=== PATIENT | female | born 1930 | race Caucasian/White ===

== ENCOUNTER 2019-12-22 17:36 | Inpatient (IN) ==
[2019-12-22] MEDS ORDERED: LORazepam 2 MG/1 ML VIAL IV STA (17:44)
[2019-12-22] MEDS ORDERED: FOSPHENYTOIN 500 MG.PE/10 ML VIAL ONE (17:45)
[2019-12-22] MEDS ORDERED: FOSPHENYTOIN 1,000 MG.PE in SODIUM CHLORIDE 0.9% 250 ML IV STA (17:46)
[2019-12-22 18:26] LABS: Basophils # 0.1 10*3/uL (0.0-0.2); Basophils % 0.5 % (0.0-0.8); Eosinophils % 0.1 % (0.00-10.9); Hematocrit 42.4 VOL% (35.7-47.0); Hemoglobin 13.1 GM/DL (12.0-16.0); Immature Granulocytes Absolute 0.13 #; Lymphocytes # 1.4 10*3/uL (1.4-4.0); Mean Corpuscular HGB Conc 30.9 GM/DL (32-36); Mean Corpuscular Volume 100.5 FL (87-102); Mean Platelet Volume 11.2 FL (9.6-12.0); Neutrophils % 84.4 % (38.7-73.9); Platelet Count 173 T/CUMM (130-400); Red Blood Count 4.22 MC/CUMM (3.8-5.5); Red Cell Distribution Width 13.4 % (9.3-17.3); White Blood Count 12.5 T/CUMM (4-12)
[2019-12-22 18:31] LABS: Alanine Aminotransferase 22 U/L (13-56); Albumin 3.5 G/DL (3.4-5.0); Alkaline Phosphatase 88 U/L (45-117); Aspartate Amino Transferase 22 U/L (0-37); Bilirubin,Total < 0.39 MG/DL (0.2-1.0); Blood Urea Nitrogen 18 MG/DL (7-18); Calcium 9.3 MG/DL (8.5-10.1); Estimated Glom Filtration Rate 23 ML/MIN; Glucose 157 MG/DL (74-106); Osmolality,Calculated 287.1 MOS/KG (273-304); Total Protein 7.5 G/DL (6.4-8.3)
[2019-12-22] MEDS ORDERED: SODIUM CHLORIDE 0.9% 1,000 ML IV STA (19:04)
[2019-12-22] MEDS ORDERED: SODIUM CHLORIDE 0.9% 1,650 ML IV ONE (19:27)
[2019-12-22 19:49] LABS: Apearance,Urine CLEAR (Clear); Bacteria,Urine Occasional /HPF (Few); Bilirubin,Urine Negative (Negative); Blood, Urine Small mg/dL (Negative); Glucose,Urine (UA) Negative (Negative); Hyaline Casts,Urine 4 /LPF (0-3); Ketones,Urine Negative (Negative); Mucus,Urine Occasional /LPF (Occasional); Nitrite,Urine Negative (Negative); Protein,Urine >=500 MG/DL; RBC,Urine 7 /HPF (0-4); Urine Color Yellow (Yellow); Urine Specific Gravity 1.013 (1.001-1.035); Urine Urobilinogen < 2.0 EU/DL (0.2-1.0); WBC,Urine 2 /HPF (0-6)
[2019-12-22] MEDS ORDERED: PIPERACILLIN/TAZOBACTAM 2,250 MG in SODIUM CHLORIDE 0.9% 100 ML IV SCH (20:00)
[2019-12-22] MEDS: PIPERACILLIN/TAZOBACTAM 3,375 MG in SODIUM CHLORIDE 0.9% 100 ML IV SCH (20:09)
[2019-12-22] MEDS: PHENYTOIN 100 MG/2 ML VIAL IV SCH (23:10)
[2019-12-23] MEDS: HEPARIN 5,000 UNIT/1 ML VIAL SUBCUT SCH ×2 (00:25→05:18)
[2019-12-23] MEDS: CLINDAMYCIN INJ 300 MG in PREMIX 1 EACH IV SCH ×2 (00:25→09:36)
[2019-12-23] MEDS ORDERED: SODIUM CHLORIDE 0.9% 1,000 ML IV ONE (06:16)
[2019-12-23] MEDS ORDERED: LEVOTHYROXINE 100 MCG VIAL IV SCH (06:30)
[2019-12-23 08:28] LABS: Alanine Aminotransferase 20 U/L (13-56); Albumin 2.5 G/DL (3.4-5.0); Alkaline Phosphatase 58 U/L (45-117); Aspartate Amino Transferase 31 U/L (0-37); Bilirubin,Total < 0.39 MG/DL (0.2-1.0); Blood Urea Nitrogen 18 MG/DL (7-18); Calcium 7.9 MG/DL (8.5-10.1); Estimated Glom Filtration Rate 32 ML/MIN; Glucose 99 MG/DL (74-106); Osmolality,Calculated 282.3 MOS/KG (273-304); Total Protein 5.7 G/DL (6.4-8.3)
[2019-12-23 09:10] LABS: Basophils % 0.5 % (0.0-0.8); Immature Granulocytes % 0.4 %; Immature Granulocytes Absolute 0.03 #; Lymphocytes # 1.8 10*3/uL (1.4-4.0); Lymphocytes % 23.3 % (21.3-54.2); Mean Corpuscular HGB Conc 32.5 GM/DL (32-36); Mean Corpuscular Volume 97.3 FL (87-102); Mean Platelet Volume 11.8 FL (9.6-12.0); Monocytes % 9.6 % (1.7-12.7); Neutrophils % 66.2 % (38.7-73.9); Red Cell Distribution Width 13.9 % (9.3-17.3)
[2019-12-23 09:14] LABS: White Blood Count 7.7 T/CUMM (4-12)
[2019-12-23 09:15] LABS: Hemoglobin 10.4 GM/DL (12.0-16.0); Platelet Count 123 T/CUMM (130-400); Red Blood Count 3.29 MC/CUMM (3.8-5.5)
[2019-12-23] MEDS: PHENYTOIN 100 MG/2 ML VIAL IV SCH (09:28)
[2019-12-23] MEDS: PIPERACILLIN/TAZOBACTAM 3,375 MG in SODIUM CHLORIDE 0.9% 100 ML IV SCH (10:12)
[2019-12-23] MEDS ORDERED: BISACODYL 10 MG SUPP RECTAL ONE (10:59)
[2019-12-23] MEDS ORDERED: fentaNYL 25 MCG/HR PATCH TRANSDERM SCH (11:00)
[2019-12-23 16:58] VITALS: BP 125/62
[2019-12-23] MEDS ORDERED: MEMANTINE 5 MG TABLET PO SCH (21:00)
[2019-12-23] MEDS ORDERED: CALCIUM CARBONATE VITAMIN D3 PO SCH (21:00)
[2019-12-23] MEDS ORDERED: DONEPEZIL 10 MG TABLET PO SCH (21:00)
[2019-12-23] MEDS ORDERED: PHENYTOIN 125 MG PO SCH (21:00)
[2019-12-23] MEDS ORDERED: PRAVASTATIN 20 MG TABLET PO SCH (21:00)
[2019-12-24] MEDS ORDERED: ASPIRIN CHEW 81 MG TABLET PO SCH (09:00)
[2019-12-24] MEDS ORDERED: [UNRECOGNIZED DRUG - OTHER] PO SCH (09:00)
[2019-12-24] MEDS ORDERED: FUROSEMIDE 20 MG TABLET PO SCH (09:00)
[2019-12-24] MEDS ORDERED: POTASSIUM CHLORIDE 10 MEQ TABLET PO SCH (09:00)
[2019-12-24] MEDS ORDERED: FAMOTIDINE 20 MG TABLET PO SCH (09:00)
[2019-12-24] MEDS ORDERED: lisinopriL 20 MG TABLET PO SCH (09:00)
[2019-12-24] MEDS ORDERED: DOCUSATE/SENNA 50-8.6 MG TABLET PO SCH (09:00)
[2019-12-26] MEDS ORDERED: fentaNYL 25 MCG/HR PATCH TRANSDERM SCH (09:00)
== END 2019-12-23 16:07 | disposition hospice, inpatient (51) | DRG 101 ==
LOC: N.ED 17:36 → N.EDINP 22:04 → N.3E 22:41
PROVIDERS: ADMIT Hospitalist; ATTEND Hospitalist

== ENCOUNTER 2019-12-26 06:46 | Inpatient (IN) ==
[2019-12-26 07:50] LABS: Bilirubin,Total 0.5 MG/DL (0.2-1.0); Calcium 8.8 MG/DL (8.5-10.1); Osmolality,Calculated 284.1 MOS/KG (273-304); Total Protein 6.4 G/DL (6.4-8.3)
[2019-12-26 08:16] LABS: Basophils % 0.4 % (0.0-0.8); Eosinophils # 0.1 10*3/uL (0.0-0.87); Eosinophils % 0.6 % (0.00-10.9); Hematocrit 33.8 VOL% (35.7-47.0); Hemoglobin 11.1 GM/DL (12.0-16.0); Immature Granulocytes % 0.4 %; Immature Granulocytes Absolute 0.04 #; Lymphocytes # 1.7 10*3/uL (1.4-4.0); Lymphocytes % 19.3 % (21.3-54.2); Mean Corpuscular HGB Conc 32.8 GM/DL (32-36); Mean Corpuscular Volume 95.2 FL (87-102); Mean Platelet Volume 10.9 FL (9.6-12.0); Monocytes % 5.6 % (1.7-12.7); Neutrophils % 73.7 % (38.7-73.9); Platelet Count 149 T/CUMM (130-400); Red Blood Count 3.55 MC/CUMM (3.8-5.5); Red Cell Distribution Width 13.7 % (9.3-17.3)
[2019-12-26 08:27] LABS: Apearance,Urine CLEAR (Clear); Bilirubin,Urine Negative (Negative); Blood, Urine Negative (Negative); Glucose,Urine (UA) Negative (Negative); Hyaline Casts,Urine 4 /LPF (0-3); Ketones,Urine Negative (Negative); Mucus,Urine Occasional /LPF (Occasional); Nitrite,Urine Negative (Negative); Protein,Urine 100 MG/DL; RBC,Urine 3 /HPF (0-4); Squamous Epithelial Cell,Urine Occasional /HPF (0-10); Urine Color Yellow (Yellow); Urine Specific Gravity 1.011 (1.001-1.035); Urine Urobilinogen < 2.0 EU/DL (0.2-1.0); WBC,Urine 1 /HPF (0-6)
[2019-12-26] MEDS ORDERED: SODIUM CHLOR 0.9% KCL 40 MEQ 40 MEQ/1,000 ML BAG IV SCH (08:30)
[2019-12-26 08:48] LABS: PT Patient Result 10.5 SECS (9.8-11.9)
[2019-12-26 08:49] LABS: Partial Thromboplastin Time < 20.0 SECS (23.9-33.8)
[2019-12-26] MEDS ORDERED: POTASSIUM CHLORIDE 20 MEQ TABLET PO STA (09:23)
[2019-12-26] MEDS ORDERED: ONDANSETRON 4 MG/2 ML VIAL IV PRN (09:31)
[2019-12-26] MEDS ORDERED: POTASSIUM CHLORIDE 10 MEQ TABLET PO ONE (09:34)
[2019-12-26] MEDS ORDERED: SODIUM CHLOR 0.9% KCL 40 MEQ 40 MEQ/1,000 ML BAG IV ONE (10:01)
[2019-12-26] MEDS: POTASSIUM CHLORIDE INJ 40 MEQ in SODIUM CHLORIDE 0.9% 1,000 ML IV SCH ×2 (10:03→15:03)
[2019-12-26] MEDS ORDERED: MORPHINE 4 MG/1 ML VIAL IV PRN ×3 (10:15→13:10)
[2019-12-26] MEDS ORDERED: ceFAZolin 1,000 MG in SYRINGE 1 EACH IV ONE (11:15)
[2019-12-26] MEDS ORDERED: diphenhydrAMINE CAP 25 MG CAPSULE PO PRN (12:28)
[2019-12-26] MEDS ORDERED: LACTULOSE 20 GM/30 ML UDCUP PO PRN (12:28)
[2019-12-26] MEDS ORDERED: MAGNESIUM HYDROXIDE SUSP 30 ML UDCUP PO PRN (12:28)
[2019-12-26] MEDS ORDERED: PROMETHAZINE 25 MG/1 ML VIAL IM PRN (12:28)
[2019-12-26] MEDS ORDERED: BISACODYL 10 MG SUPP RECTAL PRN (12:28)
[2019-12-26] MEDS ORDERED: SUGAMMADEX 200 MG/2 ML VIAL IV ONE (12:51)
[2019-12-26] MEDS ORDERED: fentaNYL 100 MCG/2 ML VIAL ONE (13:18)
[2019-12-26] MEDS ORDERED: SEVOFLURANE 1 UNIT/15 MINUTE INH ONE (13:18)
[2019-12-26] MEDS ORDERED: propofoL 200 MG/20 ML VIAL IV ONE (13:18)
[2019-12-26] MEDS ORDERED: LIDOCAINE 2% 5 ML VIAL ONE (13:18)
[2019-12-26] MEDS ORDERED: ONDANSETRON 4 MG/2 ML VIAL ONE (13:18)
[2019-12-26] MEDS ORDERED: ETOMIDATE 40 MG/20 ML VIAL IV ONE (13:18)
[2019-12-26] MEDS ORDERED: PHENYLEPHRINE 1 MG/10 ML SYRINGE IV ONE (13:19)
[2019-12-26] MEDS ORDERED: ROCURONIUM 100 MG/10 ML VIAL IV ONE (13:19)
[2019-12-26] MEDS: MEMANTINE 5 MG TABLET PO SCH (14:09)
[2019-12-26] MEDS ORDERED: PHENYTOIN 125 MG PO SCH (21:00)
[2019-12-26] MEDS: DONEPEZIL 10 MG TABLET PO SCH (21:52)
[2019-12-27 05:38] LABS: Basophils % 0.5 % (0.0-0.8); Eosinophils # 0.2 10*3/uL (0.0-0.87); Eosinophils % 2.7 % (0.00-10.9); Hematocrit 23.4 VOL% (35.7-47.0); Hemoglobin 7.5 GM/DL (12.0-16.0); Immature Granulocytes % 0.5 %; Immature Granulocytes Absolute 0.03 #; Lymphocytes % 15.2 % (21.3-54.2); Mean Corpuscular HGB Conc 32.1 GM/DL (32-36); Mean Corpuscular Volume 99.2 FL (87-102); Mean Platelet Volume 11.6 FL (9.6-12.0); Monocytes % 7.5 % (1.7-12.7); Neutrophils % 73.6 % (38.7-73.9); Platelet Count 124 T/CUMM (130-400); Red Blood Count 2.36 MC/CUMM (3.8-5.5); Red Cell Distribution Width 14.5 % (9.3-17.3); White Blood Count 6.7 T/CUMM (4-12)
[2019-12-27 05:53] LABS: Calcium 8.1 MG/DL (8.5-10.1); Osmolality,Calculated 289.8 MOS/KG (273-304)
[2019-12-27 05:56] LABS: Hypochromasia 1+; Microcytosis 1+; Ovalocytes Slight; Platelet Estimate Normal
[2019-12-27] MEDS ORDERED: FONDAPARINUX 2.5 MG/0.5 ML SYRINGE SUBCUT SCH (06:30)
[2019-12-27] MEDS: LEVOTHYROXINE 50 MCG TABLET PO SCH (06:39)
[2019-12-27] MEDS: POTASSIUM CHLORIDE INJ 40 MEQ in SODIUM CHLORIDE 0.9% 1,000 ML IV SCH (07:04)
[2019-12-27] MEDS ORDERED: SODIUM CHLORIDE 0.9% 1,000 ML IV PRN ×2 (07:09→08:17)
[2019-12-27] MEDS: SODIUM CHLORIDE 0.9% 1,000 ML IV SCH (07:15)
[2019-12-27] MEDS ORDERED: ASPIRIN CHEW 81 MG TABLET PO SCH (09:00)
[2019-12-27] MEDS: MEMANTINE 5 MG TABLET PO SCH (10:16)
[2019-12-27] MEDS: PANTOPRAZOLE 40 MG TABLET PO SCH (10:16)
[2019-12-27] MEDS: hydrALAZINE 20 MG/1 ML VIAL IV PRN ×2 (11:16→20:11)
[2019-12-27] MEDS: levETIRAcetam 500 MG TABLET PO SCH ×2 (12:36→12:44)
[2019-12-27] MEDS ORDERED: ceFAZolin 1,000 MG in SYRINGE 1 EACH IV SCH (14:00)
[2019-12-27] MEDS: PHENYTOIN 100 MG/2 ML VIAL IV SCH (16:45)
[2019-12-27] MEDS: DONEPEZIL 10 MG TABLET PO SCH (20:11)
[2019-12-27] MEDS ORDERED: PHENYTOIN ER 100 MG CAPSULE PO SCH (21:00)
[2019-12-28] MEDS: PHENYTOIN 100 MG/2 ML VIAL IV SCH ×4 (00:25→23:51)
[2019-12-28 05:41] LABS: Basophils % 0.5 % (0.0-0.8); Eosinophils % 0.1 % (0.00-10.9); Hematocrit 31.8 VOL% (35.7-47.0); Hemoglobin 10.4 GM/DL (12.0-16.0); Immature Granulocytes % 0.9 %; Immature Granulocytes Absolute 0.07 #; Lymphocytes # 1.1 10*3/uL (1.4-4.0); Lymphocytes % 12.9 % (21.3-54.2); Mean Corpuscular HGB Conc 32.7 GM/DL (32-36); Mean Corpuscular Volume 95.2 FL (87-102); Mean Platelet Volume 11.6 FL (9.6-12.0); Monocytes % 8.5 % (1.7-12.7); Neutrophils % 77.1 % (38.7-73.9); Platelet Count 109 T/CUMM (130-400); Red Blood Count 3.34 MC/CUMM (3.8-5.5); Red Cell Distribution Width 16.5 % (9.3-17.3); White Blood Count 8.2 T/CUMM (4-12)
[2019-12-28 06:12] LABS: Anisocytosis Slight; Platelet Estimate Adequate
[2019-12-28 06:13] LABS: Macrocytosis 1+
[2019-12-28] MEDS: LEVOTHYROXINE 50 MCG TABLET PO SCH (06:13)
[2019-12-28 06:15] LABS: Calcium 8.7 MG/DL (8.5-10.1); Osmolality,Calculated 292.8 MOS/KG (273-304)
[2019-12-28] MEDS: SODIUM CHLORIDE 0.9% 1,000 ML IV SCH ×2 (06:31→21:44)
[2019-12-28] MEDS ORDERED: SODIUM CHLORIDE 0.9% 500 ML IV ONE (08:49)
[2019-12-28] MEDS: PANTOPRAZOLE 40 MG TABLET PO SCH (09:58)
[2019-12-28] MEDS: MEMANTINE 5 MG TABLET PO SCH (09:58)
[2019-12-28] MEDS: SODIUM CHLORIDE 0.9% 500 ML IV ONE ×2 (10:00→11:38)
[2019-12-28 11:06] LABS: Apearance,Urine CLEAR (Clear); Bilirubin,Urine Negative (Negative); Blood, Urine Small mg/dL (Negative); Glucose,Urine (UA) Negative (Negative); Ketones,Urine 5 mg/dL (Negative); Mucus,Urine Occasional /LPF (Occasional); Nitrite,Urine Negative (Negative); Protein,Urine Negative; RBC,Urine 1 /HPF (0-4); Urine Color Yellow (Yellow); Urine Specific Gravity 1.013 (1.001-1.035); Urine Urobilinogen < 2.0 EU/DL (0.2-1.0); WBC,Urine <1 /HPF (0-6)
[2019-12-28] MEDS: DONEPEZIL 10 MG TABLET PO SCH (21:44)
[2019-12-29] MEDS: SODIUM CHLORIDE 0.9% 1,000 ML IV SCH (01:40)
[2019-12-29 05:37] LABS: Basophils % 0.4 % (0.0-0.8); Eosinophils # 0.1 10*3/uL (0.0-0.87); Eosinophils % 1.3 % (0.00-10.9); Hematocrit 28.6 VOL% (35.7-47.0); Hemoglobin 9.4 GM/DL (12.0-16.0); Immature Granulocytes % 0.4 %; Immature Granulocytes Absolute 0.03 #; Lymphocytes # 1.1 10*3/uL (1.4-4.0); Lymphocytes % 15.6 % (21.3-54.2); Mean Corpuscular HGB Conc 32.9 GM/DL (32-36); Mean Corpuscular Volume 94.7 FL (87-102); Mean Platelet Volume 11.8 FL (9.6-12.0); Monocytes % 9.9 % (1.7-12.7); Neutrophils % 72.4 % (38.7-73.9); Platelet Count 107 T/CUMM (130-400); Red Blood Count 3.02 MC/CUMM (3.8-5.5); Red Cell Distribution Width 15.9 % (9.3-17.3); White Blood Count 7.2 T/CUMM (4-12)
[2019-12-29] MEDS: LEVOTHYROXINE 50 MCG TABLET PO SCH ×2 (05:47→05:55)
[2019-12-29] MEDS: PHENYTOIN 100 MG/2 ML VIAL IV SCH (10:00)
[2019-12-29] MEDS: MEMANTINE 5 MG TABLET PO SCH (10:00)
[2019-12-29] MEDS: PANTOPRAZOLE 40 MG TABLET PO SCH (10:00)
[2019-12-29 11:26] VITALS: BP 156/72
[2019-12-29 11:47] LABS: Macrocytosis 1+; Microcytosis 1+; Platelet Estimate Adequate
== END 2019-12-29 13:54 | disposition hospice, home (50) | DRG 481 ==
LOC: EDBD → EDUNIT# → N.ED 06:46 → N.EDINP 09:20 → N.3E 09:47
PROVIDERS: ADMIT Internal Medicine; ATTEND Internal Medicine